=== PATIENT | female | born 2000 | race Two or more races ===

== ENCOUNTER 2021-01-14 18:56 | Emergency (ER) | payer SELFPAY ==
[~2021-01-14] VITALS: Ht 165.1 cm; Wt 55.0 kg
[2021-01-14] MEDS ORDERED: LIDOCAINE HCL 1% 20ML VIAL (Pyxis) INJ INFIL ONE (22:00)
[2021-01-14] MEDS ORDERED: CEPH500C2 MT (22:42)
[2021-01-14] MEDS ORDERED: CEPHALEXIN 250MG CAPSULE PO ONE (22:45)
[2021-01-14] MEDS ORDERED: IBUPROFEN 600MG TABLET PO ONE (23:15)
[2021-01-14 23:47] VITALS: BP 121/68
== END 2021-01-14 23:47 | disposition home or self-care (01) ==
LOC: ER 18:56
DX: S81.812A Laceration without foreign body, left lower leg, initial encounter (principal); W26.0XXA Contact with knife, initial encounter; Y93.89 Activity, other specified; Y92.89 Other specified places as the place of occurrence of the external cause; Y99.8 Other external cause status
CPT/HCPCS: 12001; 81025; 99283; A4217; J3490; Z7610